=== PATIENT | female | born 1995 ===

== ENCOUNTER 2017-03-21 23:23 | Emergency (ER) | payer OTHER ==
[2017-03-21 23:33] VITALS: BP 124/76; PULSE 66; RESP 18; TEMP 98; O2SAT 100
--- NOTE | 2017-03-22 01:51 | ED PDOC ---
HPI: Eye Injury/Pain Chief Complaint (Provider): Eye itching History Per: Patient History/Exam Limitations: no limitations Onset/Duration Of Symptoms: Other (Shortly before arriva) Current Symptoms Are (Timing): Still Present Injury To Eye?: No Severity: Moderate Pain Scale Rating Of: 0 Quality: Burning, Other (Itching) Wears Contact Lens?: No Associated Symptoms: Itching, Discharge From Eye. denies: Pain, Decreased Vision, Swelling, FB Sensation Additional Complaint(s): 21 y.o. female with complaint of eye itching and one episode of "something clear coming out of my eye." occurring shortly before arrival. Pt. states was at home eating spaghetti and not watching tv when she rubbed her eyes because they were itchy and she noticed clear discharge come from her eyes. Pt. denies any eye pain, changes in vision, light-headedness, headache, floaters, N/V/D/F/C , trauma, chest pain, or shortness of breath. Pt. also denies any previous episodes. Pt. denies taking any drugs. Pt. does admit to having some nasal congestion and itchy and watery eyes for the past 2 weeks. <Norris Tobias - Last Filed: 03/22/17 02:12> <Kecia Zelaya - Last Filed: 03/22/17 03:22> Time Seen by Provider: 03/22/17 01:01 Chief Complaint (Nursing): Eye Problem Supervising Attending Note - Supervising Attending Note The Documented history was done by the: Physician Deputy County Clerk, Attending Physician The documented physical exam was done by the: Physician Deputy County Clerk, Attending Physician The documented procedures were done by the: Physician Deputy County Clerk, Attending Physician - Attestation: I have personally seen and examined this patient.: Yes I have fully participated in the care of the patient.: Yes I have reviewed all pertinent clinical information, including history, physical exam and plan: Yes <Kecia Zelaya - Last Filed: 03/22/17 03:22> Past Medical History Vital Signs: Last Vital Signs Temp 98 F 03/21/17 23:31 Pulse 66 03/21/17 23:31 Resp 18 03/21/17 23:31 BP 124/76 03/21/17 23:31 Pulse Ox 100 03/21/17 23:31 - Medical History PMH: No Chronic Diseases - Surgical History Surgical History: No Surg Hx - Family History Family History: States: Unknown Family Hx - Living Arrangements Living Arrangements: Other (With boyfriend and his family) - Social History Current smoker - smoking cessation education provided: No Ex-Smoker (has not smoked in the last 12 months): No Alcohol: None Drugs: Denies <Norris Tobias - Last Filed: 03/22/17 02:12> Vital Signs: Last Vital Signs Temp 98 F 03/21/17 23:31 Pulse 66 03/21/17 23:31 Resp 18 03/21/17 23:31 BP 124/76 03/21/17 23:31 Pulse Ox 100 03/22/17 02:12 <Kecia Zelaya - Last Filed: 03/22/17 03:22> - Home Medications Home Medications: Ambulatory Orders Medication Instructions Recorded Cephalexin [Keflex] 1 tab PO QID #20 capsule 11/07/16 Ibuprofen [Motrin] 600 mg PO Q8 PRN #15 tab 11/07/16 Polymyxin B Sulf/Trimethoprim 1 drop OD Q4 #1 bottle 03/22/17 [Polymyxin B-Tmp Eye Drops] - Allergies Allergies/Adverse Reactions: Allergies Allergy/AdvReac Type Severity Reaction Status Date / Time No Known Allergies Allergy Verified 11/07/16 21:00 Review of Systems Constitutional: Negative for: Fever Eyes: Positive for: Conjunctivae Inflammation, Eyelid Inflammation, Redness. Negative for: Pain, Vision Change ENT: Negative for: Ear Pain, Ear Discharge Cardiovascular: Negative for: Chest Pain, Palpitations Respiratory: Negative for: Cough, Shortness of Breath Gastrointestinal: Negative for: Nausea, Vomiting, Abdominal Pain Genitourinary Female: Negative for: Dysuria, Frequency, Incontinence Musculoskeletal: Negative for: Neck Pain, Shoulder Pain, Arm Pain Skin: Negative for: Rash, Lesions Neurological: Negative for: Weakness, Numbness, Incoordination, Change in Speech Psych: Negative for: Anxiety, Depression (Pt. denies any Suicide or Homocide ideation.) <Norris Tobias - Last Filed: 03/22/17 02:12> Physical Exam - Reviewed Vital Signs Reviewed: Yes - Physical Exam Appears: Positive for: Well, Non-toxic, No Acute Distress Head Exam: Positive for: ATRAUMATIC, NORMOCEPHALIC Skin: Positive for: Normal Color, Warm, Dry, Rash (Multiple cut irwin noted on left upper arm old and well healed) Eye Exam: Positive for: EOMI, PERRL, Conjunctival injection (On the RT.), Other (Flourescent exam of Rt. eye WNL). Negative for: Nystagmus, Periorbital swelling, Periorbital tenderness, Scleral icterus ENT: Positive for: Normal ENT Inspection. Negative for: Nasal Congestion, Pharyngeal Erythema Neck: Positive for: Supple Cardiovascular/Chest: Positive for: Regular Rate, Rhythm. Negative for: Chest Non Tender Respiratory: Positive for: Normal Breath Sounds. Negative for: Respiratory Distress Neurologic/Psych: Positive for: Alert, Oriented, Mood/Affect (normal) <Norris Tobias - Last Filed: 03/22/17 02:12> - ECG O2 Sat by Pulse Oximetry: 100 - Progress ED Course And Treament: Eye Exam Snellen- 20/20-Both eyes Right eye-20/25, Left eye-20/20 Flourescent eye exam- WNL <Norris Tobias - Last Filed: 03/22/17 02:12> Medical Decision Making Medical Decision Makin y.o. female with no significant PMHx/PSHx and Psych Hx of Suicide ideation with no evidence of trauma diagnosed with conjunctivitis to be discharged to home and to follow up with PMD at [facility]. <Norris Tobias - Last Filed: 03/22/17 02:12> Disposition - Patient ED Disposition Is Patient to be Admitted: No Discussed With : Kecia Zelaya - Disposition Disposition: Routine/Home Disposition Time: 02:10 <Norris Tobias - Last Filed: 03/22/17 02:12> <Kecia Zelaya - Last Filed: 03/22/17 03:22> - Clinical Impression Clinical Impression: Bacterial conjunctivitis of right eye - Disposition Referrals: [facility] [Outside] Norris Tobias DO [Emergency Midlevel Provider] - Condition: GOOD Additional Instructions: Follow up with your PCP in 2-3 days. Prescriptions: Polymyxin B Sulf/Trimethoprim [Polymyxin B-Tmp Eye Drops] 1 drop OD Q4 #1 bottle Instructions: Conjunctivitis (ED)
== END 2017-03-22 02:30 | disposition home or self-care (01) ==
LOC: H.ER 23:23
DX: H10.9 Unspecified conjunctivitis (principal)

== ENCOUNTER 2017-06-22 21:57 | Emergency (ER) | payer SELFPAY ==
[2017-06-22 22:02] VITALS: BP 120/67; PULSE 91; RESP 16; TEMP 98.7; O2SAT 100
--- NOTE | 2017-06-22 23:14 | ED PDOC ---
HPI: Female Pain Time Seen by Provider: 06/22/17 22:23 Chief Complaint (Nursing): Female Genitourinary Chief Complaint (Provider): Vaginal bleeding History Per: Patient History/Exam Limitations: no limitations Onset/Duration Of Symptoms: Days Current Symptoms Are (Timing): Still Present Associated Symptoms: denies: Nausea, Vomiting, Urinary Symptoms Additional Complaint(s): The patient is a 21yo female, presents to the ED for evaluation of vaginal bleeding and pelvic pain, present for the past day. Patient reports an episode of red spotting with spontaneous resolution. She also reports intermittent pelvic cramping and breast tenderness for the past week. Of note, patient reports she is 5 days late for her period and she took a home test which was positive. She denies any nausea, vomiting, urinary symptoms, vaginal discharge. Patient states this will be her first . She denies any other medical complaints. pCP: [facility] Past Medical History Reviewed: Historical Data, Nursing Documentation, Vital Signs Vital Signs: Last Vital Signs Temp 98.7 F 06/22/17 21:59 Pulse 91 H 06/22/17 21:59 Resp 16 06/22/17 21:59 BP 120/67 06/22/17 21:59 Pulse Ox 100 06/22/17 21:59 - Medical History PMH: No Chronic Diseases - Surgical History Surgical History: No Surg Hx - Family History Family History: States: No Known Family Hx, Unknown Family Hx - Social History Current smoker - smoking cessation education provided: No Alcohol: None - Home Medications Home Medications: Ambulatory Orders Medication Instructions Recorded Cephalexin [Keflex] 1 tab PO QID #20 capsule 11/07/16 Ibuprofen [Motrin] 600 mg PO Q8 PRN #15 tab 11/07/16 Polymyxin B Sulf/Trimethoprim 1 drop OD Q4 #1 bottle 03/22/17 [Polymyxin B-Tmp Eye Drops] - Allergies Allergies/Adverse Reactions: Allergies Allergy/AdvReac Type Severity Reaction Status Date / Time No Known Allergies Allergy Verified 11/07/16 21:00 Review of Systems ROS Statement: Except As Marked, All Systems Reviewed And Found Negative Gastrointestinal: Negative for: Nausea, Vomiting Genitourinary Female: Positive for: Vaginal Bleeding, Pelvic Pain. Negative for : Dysuria, Frequency, Hematuria, Vaginal Discharge Physical Exam - Reviewed Nursing Documentation Reviewed: Yes Vital Signs Reviewed: Yes - Physical Exam Appears: Positive for: Well, Non-toxic, No Acute Distress Head Exam: Positive for: ATRAUMATIC, NORMAL INSPECTION, NORMOCEPHALIC Skin: Positive for: Warm, Dry Neck: Positive for: Normal. Negative for: Painless ROM Cardiovascular/Chest: Positive for: Regular Rate, Rhythm. Negative for: Murmur Respiratory: Negative for: Respiratory Distress Gastrointestinal/Abdominal: Positive for: Normal Exam, Soft. Negative for: Mass , Distended, Guarding, Rebound Pelvic Exam: Positive for: External Exam Normal, No Cerv. Motion Tender, Other ( outer cervix appears closed, telecom network manager Christina EDT). Negative for: Blood, Discharge, Tender Adnexa Extremity: Positive for: Normal ROM. Negative for: Deformity Neurologic/Psych: Positive for: Alert. Negative for: Motor/Sensory Deficits - Laboratory Results Result Diagrams: 06/22/17 23:33 06/22/17 23:33 - ECG O2 Sat by Pulse Oximetry: 100 (RA) Pulse Ox Interpretation: Normal Medical Decision Making Medical Decision Making: Time: 2234 Impression: Vaginal bleeding and , rule out ectopic Plan: -- Labs -- IV Fluids -- US OB Transvaginal Reassess Scribe Attestation: Documented by Jenny Duke acting as a scribe for Idania Moraes MD. Provider Attestation: All medical record entries made by the Scribe were at my direction and personally dictated by me. I have reviewed the chart and agree that the record accurately reflects my personal performance of the history, physical exam, medical decision making, and the department course for this patient. I have also personally directed, reviewed, and agree with the discharge instructions and disposition. Disposition - Clinical Impression Clinical Impression: Female genitourinary symptoms - Disposition Disposition: Transfer of Care Disposition Time: 00:00 Condition: STABLE Patient Signed Over To: Alcira Thurman Handoff Comments: Pending ER workup, reassessment and final ER disposition
[2017-06-22] MEDS: Lactated Ringer's 1,000 ML IV STA (23:30)
[2017-06-22 23:38] LABS: BASO # 0.1 K/uL (0.0-0.2); BASO % 0.8 % (0.0-2.0); EOS # 0.3 K/uL (0.0-0.7); EOS % 2.7 % (0.0-4.0); LYMPH # 3.2 K/uL (1.0-4.3); MEAN CELL VOLUME 84.2 fl (81.0-99.0); MEAN CORPUSCULAR HEMOGLOBIN 28.5 pg (27.0-31.0); MEAN CORPUSCULAR HGB CONC 33.9 g/dL (33.0-37.0); MEAN PLATELET VOLUME 8.9 fl (7.2-11.7); MONO # 0.6 K/uL (0.0-0.8); MONO % 5.1 % (0.0-10.0); NEUT # 6.9 K/uL (1.8-7.0); NEUT % 62.4 % (50.0-75.0); RED CELL DISTRIBUTION WIDTH 13.4 % (11.5-14.5)
[2017-06-22 23:50] LABS: ALB/GLOB RATIO 1.7 (1.0-2.1); ALKALINE PHOSPHATASE 71 U/L (38-126); ALT/SGPT 30 U/L (9-52); AST/SGOT 24 U/L (14-36); BILIRUBIN,TOTAL 0.5 mg/dl (0.2-1.3); BLOOD UREA NITROGEN 8 mg/dl (7-17); CALCIUM 9.3 mg/dL (8.4-10.2); CARBON DIOXIDE 22 mmol/L (22-30); CHLORIDE 107 mmol/L (98-107); GFR AFRICAN-AMERICAN > 60; GLUCOSE,RANDOM 99 mg/dL (65-105); POTASSIUM 4.1 MMOL/L (3.6-5.0); SODIUM 139 mmol/l (132-148); TOTAL PROTEIN 7.1 G/DL (6.3-8.2)
--- NOTE | 2017-06-23 00:25 | ED PDOC ---
- Laboratory Results Result Diagrams: 06/22/17 23:33 06/22/17 23:33 - ECG O2 Sat by Pulse Oximetry: 100 (RA) Pulse Ox Interpretation: Normal Medical Decision Making Medical Decision Making: Receiving sign out: Patient signed out to me by Dr. Moraes at 00:24 pending US Transvaginal. Scribe Attestation: Documented by Jenny Duke acting as a scribe for Alcira Thurman MD. Provider Attestation: All medical record entries made by the Scribe were at my direction and personally dictated by me. I have reviewed the chart and agree that the record accurately reflects my personal performance of the history, physical exam, medical decision making, and the department course for this patient. I have also personally directed, reviewed, and agree with the discharge instructions and disposition. Disposition Counseled Patient/Family Regarding: Studies Performed, Diagnosis, Need For Followup - Clinical Impression Clinical Impression: Female genitourinary symptoms - POA Present On Arrival: None - Disposition Disposition: Routine/Home Disposition Time: 00:10 Condition: IMPROVED Additional Instructions: follow up with gynecology or if not, then in the ER in 48 hours for repeat bloodwork/Ultrasound return to the ED with any worsening or concerning symptoms. Instructions: Pelvic Pain in Women (ED) Forms: [facility] (Faroese) Progress Note - Review of Symptoms Events since last encounter: 203 US Transvaginal IMPRESSION: Hemorrhagic right corpus luteal cyst. No intrauterine is identified. Ectopic is not excluded. Recommend followup serial betahCG levels and ultrasound Labs positive for RH. Patient informed of findings and expresses understanding. Stable for discharge home. Informed to follow up with OBGYN or in the ER in 2 days for rpt bloodwork ultrasound.
--- NOTE | 2017-06-23 11:29 | US ---
HISTORY: By history 5 weeks presenting with vaginal bleeding and pain. LMP 05/18/2017 COMPARISON: None available. TECHNIQUE: Transvaginal only. Real -time technique with 2D, duplex and color Doppler FINDINGS: UTERUS: Measures 3.3 x 5 x 7.5 cm. Normal in size and appearance. No fibroid or other mass lesion seen. ENDOMETRIUM: Measures 15.7 mm in diameter. No ultrasound findings to suggest gestational sac, fluid, debris, mass or polyp or other pathologic process within the endometrium. CERVIX: No cervical abnormality identified. Closed cervix 4.5 cm in length. RIGHT OVARY: Measures 3.2 x 3 x 2.9 cm. No solid mass. Normal flow. Complex, likely hemorrhagic cyst measuring 2.4 x 2.2 cm. Multiple subcentimeter follicles. LEFT OVARY: Measures 1.6 x 2.4 x 3.8 cm. No solid mass. Normal flow. Multiple subcentimeter follicles. FREE FLUID: No significant free fluid noted. OTHER FINDINGS: None. IMPRESSION: No visible intrauterine or products of gestation. No visible ectopic gestation. Complex likely hemorrhagic cyst right ovary. Multiple subcentimeter follicles. Bilaterally. Concordant results (preliminary interpretation) provided by [facility]. Procedure Completed: 01:25. Preliminary ([facility]) Report: Dictated and Authenticated: 01:54. Final Interpretation: 11:27. June 23, 2017.
== END 2017-06-23 02:24 | disposition home or self-care (01) ==
LOC: H.ER 21:57
DX: O20.9 Hemorrhage in early pregnancy, unspecified (principal); Z3A.01 Less than 8 weeks gestation of pregnancy

== ENCOUNTER 2017-06-25 09:52 | Emergency (ER) | payer SELFPAY ==
[2017-06-25 10:33] VITALS: BMI 28.1
[2017-06-25 10:40] VITALS: RESP 20; TEMP 98
--- NOTE | 2017-06-25 10:44 | ED PDOC ---
HPI: Female Pain Chief Complaint (Provider): Vaginal bleeding History Per: Patient History/Exam Limitations: no limitations Onset/Duration Of Symptoms: Days Current Symptoms Are (Timing): Still Present Pain Scale Rating Of: 2 Quality Of Discomfort: Cramping Associated Symptoms: Nausea Additional History Per: Patient Additional Complaint(s): 21 y/o F with no significant PMHx presents to ED for vaginal bleeding. Patient was evaluated here in ED on 06/22/17 because of VB and pelvic pain after a positive test at home. BetaHCG in ED 3 days ago was in the 700s and TV US could not detect the presence of IUP or ectopic . After patient was DC she continued having spotting VB until last night when she had a gush of blood coming from her vagina associated with cramping pain that when the bleeding stopped. No clots or parts were seen with the bleeding according to the patient. Since then, pain resolved and bleeding is spotting. 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 She has done multiple test at home for the past 3 days and they all have been positive. LMP 05/20/17. Abnormal Vaginal Bleeding: Yes Last Menstral Period: 05/20/17 Para: 0 <Garrison Taylor - Last Filed: 06/25/17 14:44> Past Medical History - Medical History PMH: No Chronic Diseases - Surgical History Surgical History: No Surg Hx - Family History Family History: States: No Known Family Hx - Living Arrangements Living Arrangements: Other (Boyfriend) - Social History Current smoker - smoking cessation education provided: No Alcohol: None Drugs: Denies <Garrison Taylor - Last Filed: 06/25/17 14:44> Vital Signs: Last Vital Signs Temp 98 F 06/25/17 10:35 Pulse 110 H 06/25/17 10:35 Resp 20 06/25/17 10:35 BP 118/62 06/25/17 10:35 Pulse Ox 99 06/25/17 10:35 <Darrell Paul Jr. - Last Filed: 07/06/17 13:49> - Home Medications Home Medications: Ambulatory Orders Medication Instructions Recorded Cephalexin [Keflex] 1 tab PO QID #20 capsule 11/07/16 Ibuprofen [Motrin] 600 mg PO Q8 PRN #15 tab 11/07/16 Polymyxin B Sulf/Trimethoprim 1 drop OD Q4 #1 bottle 03/22/17 [Polymyxin B-Tmp Eye Drops] - Allergies Allergies/Adverse Reactions: Allergies Allergy/AdvReac Type Severity Reaction Status Date / Time No Known Allergies Allergy Verified 11/07/16 21:00 Review of Systems ROS Statement: Except As Marked, All Systems Reviewed And Found Negative Gastrointestinal: Positive for: Nausea, Abdominal Pain Genitourinary Female: Positive for: Vaginal Bleeding <Garrison Taylor - Last Filed: 06/25/17 14:44> Physical Exam - Reviewed Nursing Documentation Reviewed: Yes Vital Signs Reviewed: Yes - Physical Exam Appears: Positive for: Non-toxic, No Acute Distress Head Exam: Positive for: NORMAL INSPECTION Skin: Positive for: Normal Color, Warm Eye Exam: Positive for: PERRL Cardiovascular/Chest: Positive for: Regular Rate, Rhythm. Negative for: Gallop , Murmur Respiratory: Positive for: Normal Breath Sounds. Negative for: Crackles, Wheezing Gastrointestinal/Abdominal: Positive for: Bowel Sounds. Negative for: Tenderness Pelvic Exam: Positive for: External Exam Normal, Bimanual Exam Normal (external OS closed. Small amount of light red blood on glove after exam), Other ( Hydraulic Press Servicer in room. Nurse Malini). Negative for: Speculum Exam Normal (small ammount of red blood present on external OS), No Cerv. Motion Tender, Active Bleeding, Discharge, Tender W/Cervical Motion, Tender Adnexa Back: Negative for: L CVA Tenderness, R CVA Tenderness Neurologic/Psych: Positive for: Alert, Oriented <Garrison Taylor - Last Filed: 06/25/17 14:44> - Physical Exam Pelvic Exam: Positive for: Bimanual Exam Normal, Other <Darrell Paul Jr. - Last Filed: 07/06/17 13:49> - Progress ED Course And Treament: TV US shows IUP 5-6 weeks, yolk sac noticed. Free fluid present in implantation site most likely blood. Patient DC home with Threatened and will F/U with PMD next week. <Garrison Taylor - Last Filed: 06/25/17 14:44> Medical Decision Making Medical Decision Makin21 y/o F presents for VB and pelvic pain Rule out threatened vs vs ectopic -BetaHCG -UA <Garrison Taylor - Last Filed: 06/25/17 14:44> Medical Decision Making: ATTENDING PHYSICIAN FOCUSED HISTORY AND PHYSICAL EXAM NOTE: Pt is a 21 yr old female who was seen and examined w/ the resident. The pt is and is c/o vaginal bleeding. Pt was seen in the ED recently and had an ultrasound at that time. On our exam, T 98, P 69, R 20, BP 100/58 Gen: Pt is A&O x 3 in NAD Heart: RRR Lungs: CTA B/L Abd: Soft, NT/ND Pelvic: small blood in vault, os closed Initial Impression: Threatened AB vs. ectopic Initial Plan: Will repeat the beta HCG and get an US <Darrell Paul Jr. - Last Filed: 07/06/17 13:49> Disposition <Garrison Taylor - Last Filed: 06/25/17 14:44> - Disposition Disposition: Routine/Home Disposition Time: 14:34 <Darrell Paul Jr. - Last Filed: 07/06/17 13:49> - Clinical Impression Clinical Impression: Threatened miscarriage in early - Disposition Condition: FAIR Additional Instructions: Evite contacto sexual y levantar peso. Gormania por la vagina. Acuda a nusrat con [facility] la semana siguiente Sera[facility] [place]. Regrese a emergencia en yakov de mucho sangramiento, dolor or cualquier otra preocupacion. Instructions: Threatened Miscarriage (ED) Forms: [employer] ([place] Islander) Print Language: ARABIC
[2017-06-25 11:05] LABS: RBC URINE 3 /hpf (0-3); URINE BACTERIA RARE (<OCC); URINE BILIRUBIN NEGATIVE (NEGATIVE); URINE BLOOD MODERATE (NEGATIVE); URINE COLOR YELLOW (YELLOW); URINE GLUCOSE (UA) NEG (Normal); URINE KETONE TRACE mg/dL (NEGATIVE); URINE LEUKOCYTE ESTERASE NEG Leu/uL (Negative); URINE PROTEIN NEGATIVE (NEGATIVE); URINE UROBILINOGEN 0.2-1.0 mg/dL (0.2-1.0); WBC URINE 1 /hpf (0-5)
--- NOTE | 2017-06-25 14:16 | US ---
HISTORY: w/ vag bleeding; also had US on 06/22 COMPARISON: Prior transvaginal obstetric ultrasound 06/23/2017. TECHNIQUE: Transvaginal obstetric ultrasound was performed for evaluation of persistent vaginal bleeding and positive test. FINDINGS: UTERUS: Measures 7.0 x 4.0 x 6.0 cm. Fluid is now identified within the endometrial cavity an decidual reaction appears associated with the superior most portion of this fluid. A tiny yolk sac is suspected within a gestational sac. Gestational sac measures 0.4 x 0.3 x 0.6 cm, with a mean diameter 0.42 cm. This is suggested and estimated gestational age is less than 6 weeks. Implantation related hemorrhage may be responsible for for remaining fluid in the more mid and distal endometrial cavity identified, which appears slightly complex. An ectopic gestation is unlikely at this point. ENDOMETRIUM: Gestational sac noted within the endometrial cavity as per above. CERVIX: No cervical abnormality identified. RIGHT OVARY: Measures 3.0 x 2.0 x 3.0 cm. No solid mass. Normal flow. 1.3 x 1.3 x 1.0 cm complex cyst identified the right ovary will without definite internal color Doppler blood flow, probably reflecting a corpus luteum cyst. Right ovary otherwise appears unremarkable. Intra-ovarian arterial blood flow is been captured. LEFT OVARY: Measures 3.0 x 1.0 x 2.0 cm. Several follicle type system are identified scattered throughout the left ovary which is otherwise unremarkable. Normal intra-ovarian arterial blood flow is been captured. FREE FLUID: No significant free fluid noted. OTHER FINDINGS: None. IMPRESSION: A single intrauterine gestation appears to be developing with a gestational sac including decidual reaction now identified with yolk sac as well reflecting an intrauterine gestation less than 6 weeks estimated gestational age. No pole is yet identified. Last menstrual period has been reported 05/18/2017 suggesting as a gestational age of 5 weeks 3 days, generally in agreement with the ultrasound exam. Fluid in the endometrial cavity may reflect implantation related hemorrhage. Clinical follow-up is advised as well as one-week follow-up pelvic ultrasonography. No ectopic gestation is identified with a probable right ovarian corpus luteum cyst noted. Viability of this gestation has not yet been proven.
[2017-06-25 14:59] VITALS: BP 100/58; PULSE 69; O2SAT 100
== END 2017-06-25 14:59 | disposition home or self-care (01) ==
LOC: H.ER 09:52
DX: O20.9 Hemorrhage in early pregnancy, unspecified (principal); Z3A.01 Less than 8 weeks gestation of pregnancy

== ENCOUNTER 2017-08-03 22:07 | Emergency (ER) | payer SELFPAY ==
[2017-08-03 22:08] VITALS: BMI 28.1
[2017-08-03 22:15] VITALS: BP 122/68; PULSE 76; RESP 17; TEMP 99; O2SAT 98
--- NOTE | 2017-08-03 23:10 | ED PDOC ---
HPI: Female Pain Time Seen by Provider: 08/03/17 22:28 Chief Complaint (Nursing): Female Genitourinary History Per: Patient History/Exam Limitations: no limitations Onset/Duration Of Symptoms: Hrs (1) Current Symptoms Are (Timing): Better Severity: Mild Quality Of Discomfort: Cramping Associated Symptoms: Other (Vaginal Bleeding). denies: Fever, Chills, Nausea, Vomiting, Diarrhea, Loss Of Appetite, Back Pain, Chest Pain, Constipation, Urinary Symptoms Additional History Per: Patient Additional Complaint(s): 21 y/o , 10 week , female here this evening for evaluation following vaginal bleeding, and abdominal cramping that began one hour [employer]. She complains that she had moderate vaginal bleeding, with clots, and suspected products of conception that she has brought with her. Now the bleeding and cramping is improving. She denies any other complaints. PMD: none Past Medical History Vital Signs: Last Vital Signs Temp 99.0 F 08/03/17 22:11 Pulse 76 08/03/17 22:11 Resp 17 08/03/17 22:11 BP 122/68 08/03/17 22:11 Pulse Ox 98 08/03/17 22:11 - Medical History PMH: Seizures Denies: Chronic Kidney Disease - Surgical History Surgical History: No Surg Hx - Family History Family History: States: Unknown Family Hx - Social History Current smoker - smoking cessation education provided: No Ex-Smoker (has not smoked in the last 12 months): No Alcohol: None Drugs: Denies - Home Medications Home Medications: Ambulatory Orders Medication Instructions Recorded Cephalexin [Keflex] 1 tab PO QID #20 capsule 11/07/16 Ibuprofen [Motrin] 600 mg PO Q8 PRN #15 tab 11/07/16 Polymyxin B Sulf/Trimethoprim 1 drop OD Q4 #1 bottle 03/22/17 [Polymyxin B-Tmp Eye Drops] - Allergies Allergies/Adverse Reactions: Allergies Allergy/AdvReac Type Severity Reaction Status Date / Time No Known Allergies Allergy Verified 08/03/17 22:15 Review of Systems ROS Statement: Except As Marked, All Systems Reviewed And Found Negative Gastrointestinal: Positive for: Abdominal Pain Genitourinary Female: Positive for: Vaginal Bleeding Physical Exam - Reviewed Nursing Documentation Reviewed: Yes Vital Signs Reviewed: Yes - Physical Exam Appears: Positive for: Well, Non-toxic, No Acute Distress Head Exam: Positive for: ATRAUMATIC, NORMAL INSPECTION, NORMOCEPHALIC Skin: Positive for: Normal Color, Warm, DRY Eye Exam: Positive for: EOMI, Normal appearance, PERRL ENT: Positive for: Normal ENT Inspection Neck: Positive for: Normal, Painless ROM Cardiovascular/Chest: Positive for: Regular Rate, Rhythm Respiratory: Positive for: CNT, Normal Breath Sounds Gastrointestinal/Abdominal: Positive for: Normal Exam, Bowel Sounds, Soft Back: Positive for: Normal Inspection Extremity: Positive for: Normal ROM Neurologic/Psych: Positive for: Alert, Oriented - ECG O2 Sat by Pulse Oximetry: 98 (RA) Pulse Ox Interpretation: Normal Medical Decision Making Medical Decision Making: Impression: Complete v. Incomplete Plan: - US Transvaginal to r/o retained products of conception Discussion: Patient reports that she is O positive, therefore she does not require Rhogam. [facility] Final Radiology Report Call: [phone] assistance Online chat: [email or web address] Patient Name: GORDON ARROYO (Age): 1995 21 Gender: F Date of Exam: 08/03/2017 Referring Physician: Kecia Zelaya # of Images: 31 Ordered As: US OB TRANSVAGINAL CONFIDENTIALITY STATEMENT This report is intended only for use by the referring physician, and only in accordance with law. If you received this in error, call [phone]. Page 1 of 1 EXAM: US , Transvaginal CLINICAL HISTORY: 21 years old, female; Signs and symptoms; Lmp or gestational age (in weeks): ; Other: Bleeding, saw large clot come out td; ; Additional info: Vaginal bleeding TECHNIQUE: Real-time transvaginal obstetrical ultrasound of the maternal pelvis and a first trimester with image documentation. Transvaginal imaging was used for better evaluation of the fetus and adnexa. COMPARISON: US - OB TRANSVAGINAL 06/23/2017 1:16:35 AM FINDINGS: Gestation: Endometrial stripe is thickened measuring 1.5 CM. No gestation is seen. The endometrium demonstrates slight heterogeneity and some areas of internal vascularity. This is compatible with retained products of conception. No evidence for ectopic gestation. Placenta/amniotic fluid: Cannot be adequately evaluated due to the early gestational age. Uterus/cervix: Uterus measures 7.0 x 3.2 CM and is retroverted. No myometrial mass. Ovaries: Right ovary measures 3.2 x 2.4 x 2.0 CM. Left ovary measures 2.2 x 1.3 x 1.4 CM. Left ovary measures 2.2 x 1.3 x 1.4 CM. Right ovary measures 3.2 x 2.4 x 2.0 CM. Both ovaries demonstrate normal waveforms without evidence for torsion. No mass. Free fluid: No free fluid. IMPRESSION: Endometrial stripe is thickened measuring 1.5 CM. No gestation is seen. The endometrium demonstrates slight heterogeneity and some areas of internal vascularity. This is compatible with retained products of conception. Thank you for allowing us to participate in the care of your patient. Dictated and Authenticated by: Teddy Diehl MD 08/04/2017 1:29 AM Eastern Time ([place] & [place]) 01:30: labs reviewed. Discussed results with patient. She should follow with physician referral given today. All questions answered. Patient is medically stable for discharge. Scribe Attestation Documented by Betty Mccoy acting as a scribe for Dr. Zelaya. Provider Attestation: All medical record entries made by the Scribe were at my direction and personally dictated by me. I have reviewed the chart and agree that the record accurately reflects my personal performance of the history, physical exam, medical decision making, and the department course for this patient. I have also personally directed, reviewed, and agree with the discharge instructions and disposition. Disposition - Clinical Impression Clinical Impression: Complete , Incomplete - Patient ED Disposition Is Patient to be Admitted: No Doctor Will See Patient In The: Office Counseled Patient/Family Regarding: Studies Performed, Diagnosis, Need For Followup - Disposition Referrals: [facility] [Outside] Disposition: Routine/Home Disposition Time: 01:30 Condition: GOOD Additional Instructions: Return for worsening bleeding and abdominal pain. Take advil for pain. Follow up with your PCP in 3 days. Vuelta por empeoramiento de sangrado y dolor abdominal. [place] advil para el dolor. Sriram un seguimiento con noel medico en 3 bill. Instructions: Spontaneous Miscarriage (ED) Print Language: MICRONESIAN
--- NOTE | 2017-08-04 01:30 | US ---
EXAM: US , Transvaginal CLINICAL HISTORY: 21 years old, female; Signs and symptoms; Lmp or gestational age (in weeks): 05/18/2017; Other: Bleeding, saw large clot come out td; ; Additional info: Vaginal bleeding TECHNIQUE: Real-time transvaginal obstetrical ultrasound of the maternal pelvis and a first trimester with image documentation. Transvaginal imaging was used for better evaluation of the fetus and adnexa. COMPARISON: US - OB TRANSVAGINAL 06/23/2017 1:16:35 AM FINDINGS: Gestation: Endometrial stripe is thickened measuring 1.5 CM. No gestation is seen. The endometrium demonstrates slight heterogeneity and some areas of internal vascularity. This is compatible with retained products of conception. No evidence for ectopic gestation. Placenta/amniotic fluid: Cannot be adequately evaluated due to the early gestational age. Uterus/cervix: Uterus measures 7.0 x 3.2 CM and is retroverted. No myometrial mass. Ovaries: Right ovary measures 3.2 x 2.4 x 2.0 CM. Left ovary measures 2.2 x 1.3 x 1.4 CM. Left ovary measures 2.2 x 1.3 x 1.4 CM. Right ovary measures 3.2 x 2.4 x 2.0 CM. Both ovaries demonstrate normal waveforms without evidence for torsion. No mass. Free fluid: No free fluid. IMPRESSION: Endometrial stripe is thickened measuring 1.5 CM. No gestation is seen. The endometrium demonstrates slight heterogeneity and some areas of internal vascularity. This is compatible with retained products of conception.
== END 2017-08-04 01:50 | disposition home or self-care (01) ==
LOC: H.ER 22:07
DX: O03.4 Incomplete spontaneous abortion without complication (principal)

== ENCOUNTER 2017-09-22 19:19 | Emergency (ER) | payer SELFPAY ==
[2017-09-22 19:20] VITALS: BMI 28.1
[2017-09-22 19:30] VITALS: BP 124/72; PULSE 89; RESP 18; TEMP 97.8; O2SAT 100
[2017-09-22] MEDS ORDERED: Sodium Chloride 0.9% 1,000 ML IV STA (19:55)
[2017-09-22 20:50] LABS: BASO % 0.4 % (0.0-2.0); EOS # 0.3 K/uL (0.0-0.7); EOS % 2.4 % (0.0-4.0); LYMPH % 24.3 % (20.0-40.0); MEAN CELL VOLUME 83.7 fl (81.0-99.0); MEAN CORPUSCULAR HEMOGLOBIN 28.1 pg (27.0-31.0); MEAN CORPUSCULAR HGB CONC 33.5 g/dL (33.0-37.0); MEAN PLATELET VOLUME 9.3 fl (7.2-11.7); MONO # 0.5 K/uL (0.0-0.8); MONO % 3.7 % (0.0-10.0); NEUT # 8.7 K/uL (1.8-7.0); NEUT % 69.2 % (50.0-75.0); NRBC % 0.1 % (0.0-0.0); WHITE BLOOD COUNT 12.5 K/uL (4.8-10.8)
[2017-09-22 20:58] LABS: ALB/GLOB RATIO 1.6 (1.0-2.1); ALKALINE PHOSPHATASE 93 U/L (38-126); ALT/SGPT 71 U/L (9-52); AST/SGOT 37 U/L (14-36); BILIRUBIN,TOTAL 0.2 mg/dl (0.2-1.3); BLOOD UREA NITROGEN 18 mg/dl (7-17); CALCIUM 9.8 mg/dL (8.4-10.2); CARBON DIOXIDE 25 mmol/L (22-30); CHLORIDE 102 mmol/L (98-107); GFR AFRICAN-AMERICAN > 60; GLUCOSE,RANDOM 105 mg/dL (65-105); POTASSIUM 3.5 MMOL/L (3.6-5.0); SODIUM 142 mmol/l (132-148)
[2017-09-22 21:06] LABS: RBC URINE 1 /hpf (0-3); URINE BACTERIA RARE (<OCC); URINE BILIRUBIN NEGATIVE (NEGATIVE); URINE BLOOD NEGATIVE (NEGATIVE); URINE COLOR YELLOW (YELLOW); URINE GLUCOSE (UA) NEG (Normal); URINE KETONE NEGATIVE (NEGATIVE); URINE LEUKOCYTE ESTERASE SMALL Leu/uL (Negative); URINE PROTEIN 30 mg/dL (NEGATIVE); URINE UROBILINOGEN 0.2-1.0 mg/dL (0.2-1.0); WBC URINE 2 /hpf (0-5)
--- NOTE | 2017-09-22 21:06 | ED PDOC ---
"HPI: Abdomen Time Seen by Provider: 09/22/17 19:54 Chief Complaint (Nursing): Abdominal Pain Chief Complaint (Provider): Right flank and right abdominal pain History Per: Patient History/Exam Limitations: no limitations Onset/Duration Of Symptoms: Hrs (since 17:00-18:00) Additional Complaint(s): Patient is a 21 y/o female with a past medical history or seizures who presents to the ED complaining of right flank and right abdominal pain, onset around 17: 00-18:00 today. Patient reports associated nausea and vomiting, but denies any fever or diarrhea. PCP: FAMILY PROVIDER, NO Past Medical History Reviewed: Historical Data, Nursing Documentation, Vital Signs Vital Signs: Last Vital Signs Temp 97.8 F 09/22/17 19:26 Pulse 89 09/22/17 19:26 Resp 18 09/22/17 19:26 BP 124/72 09/22/17 19:26 Pulse Ox 100 09/22/17 21:46 - Medical History PMH: Seizures Denies: Chronic Kidney Disease - Surgical History Surgical History: No Surg Hx - Family History Family History: States: No Known Family Hx, Unknown Family Hx - Social History Current smoker - smoking cessation education provided: No Alcohol: None Drugs: Denies - Home Medications Home Medications: Ambulatory Orders Medication Instructions Recorded Cephalexin [Keflex] 1 tab PO QID #20 capsule 11/07/16 Ibuprofen [Motrin] 600 mg PO Q8 PRN #15 tab 11/07/16 Polymyxin B Sulf/Trimethoprim 1 drop OD Q4 #1 bottle 03/22/17 [Polymyxin B-Tmp Eye Drops] - Allergies Allergies/Adverse Reactions: Allergies Allergy/AdvReac Type Severity Reaction Status Date / Time No Known Allergies Allergy Verified 08/03/17 22:15 Review of Systems ROS Statement: Except As Marked, All Systems Reviewed And Found Negative Constitutional: Negative for: Fever Gastrointestinal: Positive for: Nausea, Vomiting, Abdominal Pain (right abdominal pain). Negative for: Diarrhea Musculoskeletal: Positive for: Other (Right flank pain) Physical Exam - Reviewed Nursing Documentation Reviewed: Yes Vital Signs Reviewed: Yes - Physical Exam Appears: Positive for: Uncomfortable (Patient rioting in pain and right abdominal area), In Acute Distress (Patient rioting in pain) Head Exam: Positive for: ATRAUMATIC, NORMOCEPHALIC Skin: Positive for: Normal Color, Warm, Dry Eye Exam: Positive for: Normal appearance, EOMI, PERRL Neck: Positive for: Normal, Painless ROM, Supple Cardiovascular/Chest: Positive for: Regular Rate, Rhythm. Negative for: Murmur Respiratory: Positive for: Normal Breath Sounds. Negative for: Respiratory Distress Gastrointestinal/Abdominal: Positive for: Tenderness (Right flank tenderenss, RLQ abdominal tenderness) Back: Positive for: Normal Inspection. Negative for: L CVA Tenderness, R CVA Tenderness, Vertebral Tenderness Extremity: Positive for: Normal ROM. Negative for: Pedal Edema, Deformity Neurologic/Psych: Positive for: Alert, Oriented (x3). Negative for: Motor/ Sensory Deficits - Laboratory Results Result Diagrams: 09/22/17 20:23 09/22/17 20:23 - ECG O2 Sat by Pulse Oximetry: 100 (RA) Pulse Ox Interpretation: Normal Medical Decision Making Medical Decision Making: Time: 19:54 Initial Impression: Rule out kidney stones Initial Plan: --CT Abdomen/Pelvis W/O PO or IV Contrast --Labs --Sodium Chloride 0.9% IV 150 mls/hr --Toradol 30mg IV --Ondasteron 4mg IV --Urine C&S --POC Urine Test --Urinalysis --Reevaluation Time: 20:40 -HCG negative, patient is not Time: 21:37 CT Abdomen/Pelvis Results FINDINGS: Lower thorax: No acute findings. ABDOMEN: Liver: Unremarkable. Gallbladder and bile ducts: No calcified stones. No ductal dilation. Pancreas: Unremarkable. No ductal dilation. Spleen: No splenomegaly. Adrenals: No mass. Kidneys and ureters: No renal calculi. Mild pelvocaliectasis of RIGHT kidney. Mildly dilated RIGHT ureter. 0.2 x 0.2 x 0.2 cm calculus within RIGHT distal ureter. Stomach and bowel: Segmental areas of probable underdistention of colon. No definite mural thickening. No obstruction. Appendix: Normal caliber. No inflammation. PELVIS: Bladder: Unremarkable. No stones. Reproductive: Small ovarian follicles. ABDOMEN and PELVIS: Intraperitoneal space: Trace free fluid within pelvis. No free air. Bones/joints: Chronic L5 pars defects. No acute fracture. GORDON ARROYO | Final Radiology Report CONFIDENTIALITY STATEMENT This report is intended only for use by the referring physician, and only in accordance with law. If you received this in error, call [phone]. Page 2 of 2 Soft tissues: Unremarkable. Vasculature: Unremarkable. No aneurysm. Lymph nodes: No pathologically enlarged lymph nodes. IMPRESSION: 1. RIGHT distal ureteral calculus with mild hydroureteronephrosis. 2. Incidental/non-acute findings are described above. Time: 22:03 -Patient stable for discharge home with PO trial Clinical Impression: Kidney Stones Scribe Attestation: Documented by Brannon Howard, acting as a scribe for Alcira Thurman MD Provider Scribe Attestation: All medical record entries made by the Scribe were at my direction and personally dictated by me. I have reviewed the chart and agree that the record accurately reflects my personal performance of the history, physical exam, medical decision making, and the department course for this patient. I have also personally directed, reviewed, and agree with the discharge instructions and disposition. Disposition - Disposition Forms: [employer] (Mongolian)"
--- NOTE | 2017-09-22 21:38 | CT ---
EXAM: CT Abdomen and Pelvis Without Intravenous Contrast CLINICAL HISTORY: 21 years old, female; Pain; Abdominal pain; Flank; Right; Additional info: R flank and abdominal pain rule out stone TECHNIQUE: Axial computed tomography images of the abdomen and pelvis without intravenous contrast. All CT scans at this facility use one or more dose reduction techniques, viz.: automated exposure control; ma/kV adjustment per patient size (including targeted exams where dose is matched to indication; i.e. head); or iterative reconstruction technique. Coronal and sagittal reformatted images were created and reviewed. COMPARISON: No relevant prior studies available. FINDINGS: Lower thorax: No acute findings. ABDOMEN: Liver: Unremarkable. Gallbladder and bile ducts: No calcified stones. No ductal dilation. Pancreas: Unremarkable. No ductal dilation. Spleen: No splenomegaly. Adrenals: No mass. Kidneys and ureters: No renal calculi. Mild pelvocaliectasis of RIGHT kidney. Mildly dilated RIGHT ureter. 0.2 x 0.2 x 0.2 cm calculus within RIGHT distal ureter. Stomach and bowel: Segmental areas of probable underdistention of colon. No definite mural thickening. No obstruction. Appendix: Normal caliber. No inflammation. PELVIS: Bladder: Unremarkable. No stones. Reproductive: Small ovarian follicles. ABDOMEN and PELVIS: Intraperitoneal space: Trace free fluid within pelvis. No free air. Bones/joints: Chronic L5 pars defects. No acute fracture. Soft tissues: Unremarkable. Vasculature: Unremarkable. No aneurysm. Lymph nodes: No pathologically enlarged lymph nodes. IMPRESSION: 1. RIGHT distal ureteral calculus with mild hydroureteronephrosis. 2. Incidental/non-acute findings are described above.
[2017-09-22] MEDS ORDERED: Potassium Chloride 20 mEq ER Tab PO ONE ×2 (22:02→22:42)
[2017-09-22] MEDS ORDERED: HYDROmorphone 0.5 mg/0.5 ml ISec IVP STA (23:00)
[2017-09-22] MEDS ORDERED: HYDROmorphone 0.5 mg/0.5 ml ISec ONE (23:09)
== END 2017-09-22 23:24 | disposition home or self-care (01) ==
LOC: H.ER 19:19
DX: N13.2 Hydronephrosis with renal and ureteral calculous obstruction (principal)
CPT/HCPCS: 74176; 80053; 81003; 81025; 84702; 85025; 87086; 96374; 99283; J1170; J1885; J2405; J7040

== ENCOUNTER 2018-02-23 21:07 | Emergency (ER) | payer SELFPAY ==
[2018-02-23 21:08] VITALS: BMI 28.1
[2018-02-23 21:18] VITALS: O2SAT 98
--- NOTE | 2018-02-23 22:29 | ED PDOC ---
HPI: Female Pain Time Seen by Provider: 02/23/18 22:15 Chief Complaint (Nursing): Female Genitourinary Chief Complaint (Provider): : vaginal spotting History Per: Patient History/Exam Limitations: no limitations Onset/Duration Of Symptoms: Hrs (3) Current Symptoms Are (Timing): Still Present Quality Of Discomfort: Cramping Additional Complaint(s): 22 y/o female, approximately 6 weeks gestation, presents with vaginal spotting x 3 hours. Associated mild cramping. Denies fever, nausea/vomiting, chest pain , shortness of breath, palpitations, changes in bowel movements, urinary symptoms. Abnormal Vaginal Bleeding: Yes Last Menstral Period: 01/13/18 : 2 Para: 0 Miscarriage: 1 Past Medical History Reviewed: Historical Data, Nursing Documentation, Vital Signs Vital Signs: Last Vital Signs Temp 98.4 F 02/23/18 21:15 Pulse 81 02/23/18 21:15 Resp 16 02/23/18 21:15 BP 109/59 L 02/23/18 21:15 Pulse Ox 98 02/23/18 21:15 - Medical History PMH: No Chronic Diseases Denies: Chronic Kidney Disease - Surgical History Surgical History: No Surg Hx - Family History Family History: States: Unknown Family Hx - Home Medications Home Medications: Ambulatory Orders Medication Instructions Recorded Cephalexin [Keflex] 1 tab PO QID #20 capsule 11/07/16 Ibuprofen [Motrin] 600 mg PO Q8 PRN #15 tab 11/07/16 Polymyxin B Sulf/Trimethoprim 1 drop OD Q4 #1 bottle 03/22/17 [Polymyxin B-Tmp Eye Drops] Ibuprofen [Motrin Tab] 600 mg PO Q6 PRN #20 tab 09/22/17 Nitrofurantoin Macrocrystals 100 mg PO BID #14 cap 09/22/17 [Macrobid] Tamsulosin [Flomax] 0.4 mg PO DAILY #14 cap 09/22/17 - Allergies Allergies/Adverse Reactions: Allergies Allergy/AdvReac Type Severity Reaction Status Date / Time No Known Allergies Allergy Verified 08/03/17 22:15 Review of Systems ROS Statement: Except As Marked, All Systems Reviewed And Found Negative Genitourinary Female: Positive for: Vaginal Bleeding Physical Exam - Reviewed Nursing Documentation Reviewed: Yes Vital Signs Reviewed: Yes - Physical Exam Appears: Positive for: Well, Non-toxic, No Acute Distress Head Exam: Positive for: ATRAUMATIC, NORMAL INSPECTION, NORMOCEPHALIC Skin: Positive for: Normal Color Eye Exam: Positive for: Normal appearance ENT: Positive for: Normal ENT Inspection Cardiovascular/Chest: Positive for: Regular Rate, Rhythm Respiratory: Positive for: Normal Breath Sounds Gastrointestinal/Abdominal: Positive for: Normal Exam Pelvic Exam: Positive for: External Exam Normal, Speculum Exam Normal, Blood ( cervix closed), 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 Negative for: Active Bleeding Back: Positive for: Normal Inspection Extremity: Positive for: Normal ROM Neurologic/Psych: Positive for: Alert, Oriented - Laboratory Results Result Diagrams: 02/23/18 22:30 02/23/18 22:30 - ECG O2 Sat by Pulse Oximetry: 98 - Progress ED Course And Treament: labs, urine, ob tv u/s EXAM: US , Transvaginal CLINICAL HISTORY: 22 years old, female; Pain; complicated by abdominal or pelvic pain; Lower; First trimester; Gestational age or lmp: 01/08/2018; ; Additional info: Approx 6wks ; Vaginal spotting TECHNIQUE: Real-time transvaginal obstetrical ultrasound of the maternal pelvis and a first trimester with image documentation. Transvaginal imaging was used for better evaluation of the fetus and adnexa. COMPARISON: No relevant prior studies available. FINDINGS: Gestation: Single live intrauterine gestation. heart rate of 115 beats per minute. [place]-rump length of 0.6 cm, correlating with gestational age of 6 weeks 3 days. Uterus/cervix: Retroverted uterus. 1.5 x 0.5 x 0.8 cm collection along gestational sac. No cervical dilatation or effacement. Ovaries: Normal ovaries. No adnexal masses. Free fluid: No significant free fluid. IMPRESSION: 1. Single live intrauterine gestation. 2. Subchorionic hemorrhage. 3. Incidental/non-acute findings are described above. Patient educated on findings, advised pelvic rest. 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 Return precautions given. Disposition - Clinical Impression Clinical Impression: Subchorionic hemorrhage, Vaginal bleeding during - Patient ED Disposition Is Patient to be Admitted: No Counseled Patient/Family Regarding: Studies Performed, Diagnosis, Need For Followup - Disposition [facility] Disposition: Routine/Home Disposition Time: 00:24 Condition: STABLE Instructions: Bleeding With
[2018-02-23 22:49] LABS: ALB/GLOB RATIO 1.3 (1.0-2.1); ALBUMIN 4.3 g/dL (3.5-5.0); ALT/SGPT 47 U/L (9-52); AST/SGOT 28 U/L (14-36); BLOOD UREA NITROGEN 12 mg/dl (7-17); CALCIUM 9.4 mg/dL (8.4-10.2); GFR AFRICAN-AMERICAN > 60; GFR NON-AFRICAN AMERICAN > 60
[2018-02-23 22:51] LABS: BASO # 0.1 K/uL (0.0-0.2); BASO % 0.6 % (0.0-2.0); EOS # 0.3 K/uL (0.0-0.7); EOS % 2.2 % (0.0-4.0); HEMOGLOBIN 12.8 g/dL (12.0-16.0); LYMPH # 2.7 K/uL (1.0-4.3); LYMPH % 18.9 % (20.0-40.0); MEAN CELL VOLUME 83.8 fl (81.0-99.0); MEAN CORPUSCULAR HEMOGLOBIN 28.6 pg (27.0-31.0); MEAN CORPUSCULAR HGB CONC 34.1 g/dL (33.0-37.0); MEAN PLATELET VOLUME 8.8 fl (7.2-11.7); MONO # 0.7 K/uL (0.0-0.8); MONO % 4.7 % (0.0-10.0); NEUT # 10.5 K/uL (1.8-7.0); NEUT % 73.6 % (50.0-75.0); RBC 4.47 Mil/uL (3.80-5.20); RED CELL DISTRIBUTION WIDTH 13.6 % (11.5-14.5); WHITE BLOOD COUNT 14.3 K/uL (4.8-10.8)
--- NOTE | 2018-02-23 23:48 | US ---
EXAM: US , Transvaginal CLINICAL HISTORY: 22 years old, female; Pain; complicated by abdominal or pelvic pain; Lower; First trimester; Gestational age or lmp: 01/08/2018; ; Additional info: Approx 6wks ; Vaginal spotting TECHNIQUE: Real-time transvaginal obstetrical ultrasound of the maternal pelvis and a first trimester with image documentation. Transvaginal imaging was used for better evaluation of the fetus and adnexa. COMPARISON: No relevant prior studies available. FINDINGS: Gestation: Single live intrauterine gestation. heart rate of 115 beats per minute. [place]-rump length of 0.6 cm, correlating with gestational age of 6 weeks 3 days. Uterus/cervix: Retroverted uterus. 1.5 x 0.5 x 0.8 cm collection along gestational sac. No cervical dilatation or effacement. Ovaries: Normal ovaries. No adnexal masses. Free fluid: No significant free fluid. IMPRESSION: 1. Single live intrauterine gestation. 2. Subchorionic hemorrhage. 3. Incidental/non-acute findings are described above.
[2018-02-24 00:59] VITALS: BP 116/72; PULSE 85; RESP 18; TEMP 98.3
== END 2018-02-24 00:40 | disposition home or self-care (01) ==
LOC: H.ER 21:07
DX: O20.9 Hemorrhage in early pregnancy, unspecified (principal); Z3A.01 Less than 8 weeks gestation of pregnancy; O26.891 Other specified pregnancy related conditions, first trimester

== ENCOUNTER 2019-04-08 12:42 | Emergency (ER) | payer MEDICAID, OTHER, SELFPAY ==
[2019-04-08 12:42] VITALS: BMI 31.6
[2019-04-08 13:09] VITALS: BP 108/60; PULSE 75; RESP 18; TEMP 98.8; O2SAT 98
[2019-04-08] MEDS ORDERED: Sodium Chloride 0.9% 1,000 ML IV STA (15:11)
--- NOTE | 2019-04-08 15:26 | ED PDOC ---
HPI: General Adult Time Seen by Provider: 04/08/19 13:52 Chief Complaint (Nursing): Female Genitourinary Chief Complaint (Provider): vaginal spotting, cough, fever History Per: Patient History/Exam Limitations: no limitations Additional Complaint(s): 23 y/o Female who is 6 weeks and presents with fever, cough, vaginal spotting. Pt states that she began having a cough and body aches 2 days ago and had a subjective fever this morning at which time she woke up from bed and noted pinkish red vaginal spotting. Further admits to having sore throat and ear pain but denies N/V, diarrhea, abdominal pain, dysuria, urinary frequency, vaginal discharge. She denies any ultrasound confirmation of . Past Medical History Reviewed: Historical Data, Nursing Documentation, Vital Signs Vital Signs: Last Vital Signs Temp 98.8 F 04/08/19 13:07 Pulse 75 04/08/19 13:07 Resp 18 04/08/19 13:07 BP 108/60 04/08/19 13:07 Pulse Ox 98 04/08/19 13:07 Primary Care Provider: True Pineda - Medical History PMH: No Chronic Diseases, Seizures Denies: Chronic Kidney Disease - Family History Family History: States: Unknown Family Hx - Home Medications Home Medications: Ambulatory Orders Medication Instructions Recorded Cephalexin [Keflex] 1 tab PO QID #20 capsule 11/07/16 Ibuprofen [Motrin] 600 mg PO Q8 PRN #15 tab 11/07/16 Polymyxin B Sulf/Trimethoprim 1 drop OD Q4 #1 bottle 03/22/17 [Polymyxin B-Tmp Eye Drops] Ibuprofen [Motrin Tab] 600 mg PO Q6 PRN #20 tab 09/22/17 Nitrofurantoin Macrocrystals 100 mg PO BID #14 cap 09/22/17 [Macrobid] Tamsulosin [Flomax] 0.4 mg PO DAILY #14 cap 09/22/17 - Allergies Allergies/Adverse Reactions: Allergies Allergy/AdvReac Type Severity Reaction Status Date / Time No Known Allergies Allergy Verified 04/08/19 13:06 Review of Systems Constitutional: Positive for: Fever. Negative for: Chills ENT: Positive for: Ear Pain, Throat Pain. Negative for: Nose Discharge Cardiovascular: Negative for: Palpitations Respiratory: Positive for: Cough. Negative for: Shortness of Breath Gastrointestinal: Negative for: Nausea, Vomiting, Abdominal Pain, Diarrhea Genitourinary Female: Negative for: Dysuria Physical Exam - Reviewed Nursing Documentation Reviewed: Yes Vital Signs Reviewed: Yes - Physical Exam Appears: Positive for: Non-toxic Skin: Positive for: Normal Color ENT: Positive for: TM Is/Are (dull B/L, no erythema), Pharyngeal Erythema (mild). Negative for: Sinus Pain/Drainage, Nasal Congestion, Tonsillar Exudate, Tonsillar Swelling Cardiovascular/Chest: Positive for: Regular Rate, Rhythm Respiratory: Positive for: Normal Breath Sounds Gastrointestinal/Abdominal: Positive for: Soft, Tenderness (LLQ on palpation as well as suprapubic. ), Other (striae). Negative for: Guarding, Rebound Pelvic Exam: Positive for: External Exam Normal (pelvic exam performed in the presence of Sushil Villafuerte), Bimanual Exam Normal, Discharge (white discharge), Other (cervical os closed). Negative for: No Cerv. Motion Tender, Active Bleeding, Blood, Cervicitis, Lesions, Mass, Tender W/Cervical Motion, Tender Adnexa, Tender Uterus Neurological/Psych: Positive for: Awake, Alert, Oriented - Laboratory Results Result Diagrams: 04/08/19 15:40 04/08/19 15:40 - ECG O2 Sat by Pulse Oximetry: 98 Medical Decision Making Medical Decision Making: CBC, BMP, Beta HCG Transvaginal U/S Rapid flu Rapid strep Tylenol 975mg PO x 1 NS 1L IV x 1 genital culture U/A: nitrate and LE negative, WBCs < 1K. TVUS: Findings: The uterus measures approximately 8.1 x 7.5 x 5.7 cm. Retroverted. Cervix length measures approximately 3.6 cm. There is a single intrauterine fetus present. 3 mm yolk sac. The gestational sac measures 1.7 cm and is compatible with a gestational age of 6 weeks 0 days. The crown-rump length measures 0.6 cm and is compatible with a gestational age of 6 weeks 3 days. There is heart motion which measured 130 BPM. The right ovary measures 4.6 x 2.7 x 1.7 cm and contains evidence of corpus luteal cyst measuring 1.9 x 1.9 x 1.5 cm. The left ovary measures 3.4 x 2.2 x 1.4 cm. Blood flow was demonstrated to both ovaries. Impression: Live single intrauterine with estimated gestational age 6 weeks 3 days by crown-rump length calculation. heart rate 130 bpm. Advise an anomaly screen at 16-18 weeks gestational age. Rapid flu, rapid strep negative. 17:35: beta-HCG still pending, patient re-assessed: feeling better after fluids. Pt advised to continue to drink plenty of water, get rest and take Tylenol for fevers/body pains. REturn to ER if symptoms worsen. Avoid heavy lifting. Follow up with [facility] within the next week. Disposition - Clinical Impression Clinical Impression: Viral illness, Viral pharyngitis - Patient ED Disposition Is Patient to be Admitted: No Counseled Patient/Family Regarding: Studies Performed, Diagnosis, Need For Followup - Disposition [facility] [employer] [facility] [Outside] Disposition: Routine/Home Disposition Time: 17:30 Condition: STABLE Additional Instructions: Follow up with [facility] ref[facility] within the next week or 2. Get plenty of rest and drink plenty of fluids. Take Tylenol for fevers and body aches. Return to ER with worsening symptoms. Avoid heavy lifting. Instructions: Cough, Runny Nose, and the Common Cold (DC), Viral Pharyngitis (DC) Forms: [employer] ([place]) Print Language: SERBIAN
[2019-04-08 15:54] LABS: BASO % 0.2 % (0.0-2.0); EOS # 0.3 K/uL (0.0-0.7); EOS % 3.6 % (0.0-4.0); HEMOGLOBIN 12.3 g/dL (12.0-16.0); LYMPH # 1.7 K/uL (1.0-4.3); LYMPH % 18.3 % (20.0-40.0); MEAN CELL VOLUME 81.4 fl (81.0-99.0); MEAN CORPUSCULAR HEMOGLOBIN 27.2 pg (27.0-31.0); MEAN CORPUSCULAR HGB CONC 33.5 g/dL (33.0-37.0); MEAN PLATELET VOLUME 9.4 fl (7.2-11.7); MONO # 0.5 K/uL (0.0-0.8); MONO % 5.1 % (0.0-10.0); NEUT # 6.8 K/uL (1.8-7.0); NEUT % 72.8 % (50.0-75.0); NRBC % 0.1 % (0.0-0.0); RBC 4.52 Mil/uL (3.80-5.20); RED CELL DISTRIBUTION WIDTH 14.8 % (11.5-14.5); WHITE BLOOD COUNT 9.4 K/uL (4.8-10.8)
[2019-04-08 16:03] LABS: SQUAMOUS EPITHIAL 3 /hpf (0-5); URINE BACTERIA RARE (<OCC); URINE BILIRUBIN NEGATIVE (NEGATIVE); URINE BLOOD NEGATIVE (NEGATIVE); URINE CLARITY SLIGHTY-CLOUDY (Clear); URINE COLOR YELLOW (YELLOW); URINE GLUCOSE (UA) NEG (NEGATIVE); URINE LEUKOCYTE ESTERASE NEG Leu/uL (Negative); URINE PROTEIN NEGATIVE (NEGATIVE); URINE UROBILINOGEN 0.2-1.0 mg/dL (0.2-1.0)
[2019-04-08 16:06] LABS: BLOOD UREA NITROGEN 9 mg/dl (7-17); CALCIUM 9.2 mg/dL (8.4-10.2); GFR NON-AFRICAN AMERICAN > 60
--- NOTE | 2019-04-08 17:29 | US ---
Date of service: 2019-04-08 16:23:12 Indication: 6 wks , vag bleed Comparison: Ob transvaginal ultrasound performed 02/23/18 Technique: Transvaginal pelvic ultrasound Findings: The uterus measures approximately 8.1 x 7.5 x 5.7 cm. Retroverted. Cervix length measures approximately 3.6 cm. There is a single intrauterine fetus present. 3 mm yolk sac. The gestational sac measures 1.7 cm and is compatible with a gestational age of 6 weeks 0 days. The crown-rump length measures 0.6 cm and is compatible with a gestational age of 6 weeks 3 days. There is heart motion which measured 130 BPM. The right ovary measures 4.6 x 2.7 x 1.7 cm and contains evidence of corpus luteal cyst measuring 1.9 x 1.9 x 1.5 cm. The left ovary measures 3.4 x 2.2 x 1.4 cm. Blood flow was demonstrated to both ovaries. Impression: Live single intrauterine with estimated gestational age 6 weeks 3 days by crown-rump length calculation. heart rate 130 bpm. Advise an anomaly screen at 16-18 weeks gestational age
== END 2019-04-08 18:41 | disposition home or self-care (01) ==
LOC: H.ER 12:42
DX: O98.511 Other viral diseases complicating pregnancy, first trimester (principal); J02.9 Acute pharyngitis, unspecified; O20.9 Hemorrhage in early pregnancy, unspecified; O99.511 Diseases of the respiratory system complicating pregnancy, first trimester; Z3A.01 Less than 8 weeks gestation of pregnancy; B34.9 Viral infection, unspecified
CPT/HCPCS: 76830; 80048; 81003; 81025; 84702; 85025; 87070; 87086; 87430; 87804; 99284; J7030